=== PATIENT | male | born 1960 | race African-American/Black ===

== ENCOUNTER → 2016-07-18 | Outpatient (CLI) | payer OTHER ==
[~2016-07-18] MED LIST: ADULT LOW DOSE81 MG PO; ALBUTEROL NEB; ALLOPURINOL 10100 M1 PO; AMARYL4 MG GT; AMLODIPINE BESY10 MG PO; ARANESP 4040 MCG/0.4 IJ; AUGMENTIN 875875 MG PO; CARVEDILOL6.25 MG PO; CLONIDINE HCL0.3 M2 PO; COLACE100 MG PO; COREG25 MG PO; DILAUDID 2 MG TA2 MG IV; DORIBAX250 MG IV; DOXYCYCLINE 10100 MG PO; FAMOTIDINE20 MG PO; GLUCOSAMINE HC500 MG PO; GLUCOSAMINE/CHONDROI PO; GUMMY SWIRLS1 EACH PO; GUMMY VITAMINS PO; HEPARIN IV; HEPARIN SQ; HUMALOG100 UNIT/1 SUBQ; HYDRALAZINE 2525 MG PO; HYDRALAZINE 5050 MG PO; HYDRALAZINE IV; HYDROCODONE-AP1 EAC6 PO; IBUPROFEN 800800 M1 GT; IRON325 PO; K-DUR 20 MEQ T20 MEQ PO; LABETALOL IV; LANTUS SOL100 UNIT/1 SUBQ; LANTUS SQ; LANTUS100 UNIT/M SUBQ; LASIX 40 MG TAB40 MG PO; LEVEMIR SUBQ; LEXAPRO 10 MG T10 M1 PO; LEXAPRO20 MG PO; LIDODERM 5%1 PATC1 TRANSDERM; LOPRESSOR IV; LORAZEPAM 1 MG T1 MG IV; METAMUCIL WAFER1 PK1 GT; METOLAZONE 2.52.5 MG PO; METOPROLOL SUCC50 MG PO; MIRALAX17 GM PO; MULTIVITAMINS PO; NEPHROCAPS SOFT1 CAP PO; NORCO 5-325 TA1 EACH PO; NOREPINEPH IV; NORVASC10 MG PO; NOVOLOG100 UNIT/1; PANTOPRAZOLE SO40 M1 PO; PARICALCITOL1 MCG PO; PAXIL10 MG; PRAVASTATIN SOD20 MG PO; PRILOSEC 20 MG20 MG PO; PROTONIX40 M2 GT; REGLAN 5 MG TAB5 M1 GT; RENVELA800 MG PO; SENNA LAXATIVE1 EACH PO; SEROQUEL 25 MG25 MG GT; SEROQUEL 50 MG50 MG GT; SODIUM CHLORID250 ML IV; TAMIFLU30 MG PO; TOPROL XL100 MG PO; TRADJENTA5 MG PO; TRAMADOL 50 MG50 MG PO; TURMERIC PO; TYLENOL325 MG PO; VIT D PO; VITAMIN D2000 UNIT PO; ZANTAC 150MG T150 M1 PO; [UNRECOGNIZED DRUG - OTHER] GT; [UNRECOGNIZED DRUG - OTHER] PO
== END ==
LOC: MRI 07:16
DX: R51 Headache (principal); H91.91 Unspecified hearing loss, right ear

== ENCOUNTER → 2016-08-08 | Outpatient (CLI) | payer OTHER | LOC: RAD 10:35 | DX: J90 Pleural effusion, not elsewhere classified (principal); J98.11 Atelectasis; J98.4 Other disorders of lung; R91.8 Other nonspecific abnormal finding of lung field ==

== ENCOUNTER → 2016-08-22 | Outpatient (CLI) | payer OTHER | LOC: CAT 08:25 | DX: R63.4 Abnormal weight loss (principal); Z85.038 Personal history of other malignant neoplasm of large intestine ==

== ENCOUNTER → 2016-10-19 | Outpatient (CLI) | payer OTHER ==
[2016-10-20 01:11] LABS: GLYCOHEMOGLOBIN (HGB A1C) 6.6 % (4.8-5.6)
== END ==
LOC: MRI 10-11 10:30 → LABMALL 09:04 → MRI 09:04
PROVIDERS: Psychiatry & Neurology Neurology
DX: M48.02 Spinal stenosis, cervical region (principal); C18.9 Malignant neoplasm of colon, unspecified

== ENCOUNTER → 2017-05-01 | Outpatient (CLI) | payer OTHER ==
[~2017-05-01] MED LIST changes: +B COMPLEX1 EACH PO; +LACTULOSE20 GM/30 M PO; +LEVAQUIN 750 M750 MG PO; +MUCINEX600 MG PO; +SENSIPAR 30 MG30 M1 PO; +VENTOLIN HFA 1818 GM INH
== END ==
LOC: CAT 08:59
DX: R22.2 Localized swelling, mass and lump, trunk (principal); J98.4 Other disorders of lung; N18.4 Chronic kidney disease, stage 4 (severe); N18.6 End stage renal disease; J69.0 Pneumonitis due to inhalation of food and vomit; I12.0 Hypertensive chronic kidney disease with stage 5 chronic kidney disease or end stage renal disease; E11.22 Type 2 diabetes mellitus with diabetic chronic kidney disease; E11.42 Type 2 diabetes mellitus with diabetic polyneuropathy; E11.319 Type 2 diabetes mellitus with unspecified diabetic retinopathy without macular edema; G47.33 Obstructive sleep apnea (adult) (pediatric); K21.9 Gastro-esophageal reflux disease without esophagitis; J44.9 Chronic obstructive pulmonary disease, unspecified; E78.5 Hyperlipidemia, unspecified; Z90.49 Acquired absence of other specified parts of digestive tract; Z85.038 Personal history of other malignant neoplasm of large intestine; Z99.2 Dependence on renal dialysis; Z98.890 Other specified postprocedural states

== ENCOUNTER → 2017-10-30 | Outpatient (CLI) | payer OTHER ==
[~2017-10-30] MED LIST changes: -B COMPLEX1 EACH PO; -LACTULOSE20 GM/30 M PO; -LEVAQUIN 750 M750 MG PO; -MUCINEX600 MG PO; -SENSIPAR 30 MG30 M1 PO; -VENTOLIN HFA 1818 GM INH
== END ==
LOC: CAT 08:16
DX: C18.2 Malignant neoplasm of ascending colon (principal); R93.8 Abnormal findings on diagnostic imaging of other specified body structures; N18.4 Chronic kidney disease, stage 4 (severe)

== ENCOUNTER 2018-07-10 08:16 | Inpatient (IN) | payer OTHER ==
[~2018-07-10] VITALS: Ht 193 cm; Wt 141.4 kg
--- NOTE | ~2018-07-10 | HC ---
[facility] [place] [address] CONSULTATION Name: JUNE BERNAL Orly Room #: 449-I ADM IN .R.#: [id number] Admission: 07/10/18 ������������������ Attend Phys: Dominick Brock MD Discharge: ������������������ Date of : 60 Report #: [id number] THIS REPORT FOR: //name// CC: Dominick Brock DATE OF SERVICE: 07/10/2018 NEPHROLOGY CONSULTATION: REASON FOR CONSULTATION: End-stage renal disease requiring hemodialysis. HISTORY OF PRESENT ILLNESS: This is a 57-year-old male who was admitted earlier today from the Emergency Room. He complains of having cough and dyspnea as well as pleuritic chest pain. This all started about 3 weeks ago. He had fevers and probable chills at that time. He said he had myalgias consistent with a viral illness. He was never checked for influenza at that time. Those symptoms started to improve a bit, but over the past week or so, they have now worsened. He has more pleuritic chest pain, central in nature, some right-sided pleuritic chest pain. Cough has worsened to the point that he has these coughing paroxysms which are difficult to control. He reports no sputum production. He had some low-grade fever documented at 101 degrees Fahrenheit recently. Intake of food and fluid has been down. From a dialysis standpoint, the patient has end-stage renal disease due to diabetic nephropathy. He has longstanding diabetes mellitus as the cause of the end-stage renal disease. He dialyzes using a left forearm radiocephalic fistula and normally dialyzes on a Sunday, Sunday, Sunday basis. He has been compliant with his dialysis treatments and last dialyzed 2 days ago on 07/08/2018. He states his intake of food and fluids has been down and his weight gains have not been as big at dialysis. PAST MEDICAL HISTORY: Longstanding diabetes mellitus. With that, he has substantial retinopathy to the point he has blindness, peripheral neuropathy as well as his end-stage renal disease. He also had hypertension with that. He has had several prior episodes of pulmonary infection and pneumonia requiring hospitalization. He also has a history of hepatitis C, treated in 2009 with clearance of the virus. About 5 years ago, he had colon cancer. He had a hemicolectomy done. He got some chemotherapy. It has now been 5 years since that and is noted to be free of disease. He had prior respiratory arrest. He has had a prior left forearm fistula placed noted above. He actually is doing so well from a colon cancer standpoint that his port was removed here just a couple of months ago. MEDICATIONS: At home include Sensipar 30 mg dialysis, pantoprazole 40 mg daily, Lantus 11 units daily, Renvela 800 mg t.i.d. with meals, Nephrocaps 1 daily, [address] [address] CONSULTATION Name: JUNE BERNAL Room #: 449-I [facility] IN .R.#: [id number] Admission: 07/10/18 ������������������ Attend Phys: Dominick Brock MD Discharge: ������������������ Date of : 60 Report #: [id number] albuterol inhaler. ALLERGIES: No known medical allergies. FAMILY HISTORY: Noncontributory. SOCIAL HISTORY: The patient is single, lives in [place], [place]. He is medically disabled. REVIEW OF SYSTEMS: Mainly positive for the cough, fever or pleuritic chest pain as noted above. Appetite has been slightly down. He has some nausea. Some abdominal pain with his cough, which seems to be more muscular in nature. No vomiting. No diarrhea. He has been going to the dialysis. No recent edema. He still makes a small amount of urine. He had fever a few weeks ago and then low grade fever the past few days. He is totally blind. PHYSICAL EXAMINATION: GENERAL: A 57-year-old male, acutely ill with extensive cough, although he does not look overtly toxic at this time. VITAL SIGNS: Blood pressure 144/77, heart rate 94, respiratory rate 24, oxygen saturation 98% on oxygen, temperature 98.6, although was 99.1 earlier today. HEENT: Totally blind. Oral mucosa is negative. NECK: Supple without adenopathy or JVD. CHEST: Shows extensive coughing with a few wheezes and rhonchi, greater on the right than the left, but there are diffuse sounds of that sort. BACK: Shows no CVA tenderness. CARDIOVASCULAR: Heart has somewhat distant heart tones with a regular rate and rhythm. ABDOMEN: Has active bowel sounds, is soft, nontender. There is no peripheral edema. EXTREMITIES: He has left forearm fistula in place with active flow. LABORATORY DATA: Sodium 137, potassium 4.0, chloride 96, bicarbonate 27, BUN 69, creatinine 13.1, glucose 153, calcium 8.0. Troponin less than 0.06. White count 3.6, hemoglobin 11.1, hematocrit 32.9, platelets 173,000. Influenza screen was negative. ASSESSMENT: 1. End-stage renal disease. He missed dialysis today. I have talked to the dialysis nursing staff and we will plan on dialyzing him first thing tomorrow morning. We will try to replicate his usual dialysis run. We will then dialyze him as needed while he is in the hospital. 2. Recurring respiratory infection. White count was normal. He has had fever. He certainly has had cough and is very symptomatic. He is on broad-spectrum antibiotics as well as inhalers and steroids. Hopefully, we will see him respond fairly rapidly. [facility] [address] [place] [address] CONSULTATION Name: JUNE BERNAL Room #: 449-I ADM IN M.R.#: [id number] Admission: 07/10/18 ������������������ Attend Phys: Dominick Brock MD Discharge: ������������������ Date of : 60 Report #: [id number] 3. Longstanding diabetes with retinopathy, neuropathy, and nephropathy. 4. Anemia of end-stage renal disease, on chronic erythropoietin protocol. 5. Colon cancer about 5 years ago post-resection and treatment, now free of disease. PLAN: 1. Continue antibiotics. 2. Dialysis tomorrow. 3. We will follow along the care of this very pleasant patient. ��������������������������������������������� ���������������������������������������� By: ��������������������������������������������� [id number] [id number] Mendoza Jean MD /nt
[2018-07-10 08:16] VITALS: BP 143/80
[~2018-07-10 08:16] MED LIST changes: +B COMPLEX1 EACH PO; +LACTULOSE20 GM/30 M PO; +LEVAQUIN 750 M750 MG PO; +MUCINEX600 MG PO; +SENSIPAR 30 MG30 M1 PO; +VENTOLIN HFA 1818 GM INH
[2018-07-10 09:19] LABS: HEMATOCRIT 32.9 % (42.0-52.0); HEMOGLOBIN 11.1 gm/dL (14.0-18.0); MCH 30.9 pg (26.0-34.0); MCHC 33.9 g/dL (28.0-37.0); MCV 91.2 fL (80.0-100.0); PLATELET COUNT 173 thou/uL (150-400); RBC 3.61 mil/uL (4.50-6.00); RDW 15.4 % (10.5-14.5); WBC 3.6 thou/uL (4.0-11.0)
[2018-07-10 09:31] LABS: ANION GAP 14 mmol/L (7-16); BUN 69 mg/dL (7-18); CHLORIDE 96 mmol/L (98-107); CO2 27 mmol/L (21-32); CREATININE 13.1 mg/dL (0.7-1.3); GLUCOSE 153 mg/dL (74-106); SODIUM 137 mmol/L (136-145)
[2018-07-10 09:39] LABS: TROPONIN-I <0.06 ng/mL (<0.06)
[2018-07-10 09:58] VITALS: BP 143/80
[2018-07-10 10:48] LABS: ABSOLUTE NEUTROPHILS 1.9 thou/uL (1.4-8.2); PLATELET ESTIMATE NORMAL
[2018-07-10 11:40] VITALS: BP 143/80
[2018-07-10 12:45] VITALS: BP 120/77
[2018-07-10 15:00] VITALS: BP 165/93
--- NOTE | 2018-07-10 17:16 | EKG ---
[address] [address] ELECTROCARDIOGRAM REPORT Name: JUNE BERNAL Room #: 449-I ADM IN M.R.#: [id number] ������������������ Admission: 07/10/18 ������������������ Attend Phys: Dominick Brock MD Discharge: ������������������ Date of : 60 Report #: [id number] ����������������������������������������������������������������� [id number] THIS REPORT FOR: //name// [facility] ED Test Date: 2018-07-10 Test Time: 08:34:03 Pat Name: JUNE BERNAL Department: Room: [facility] Gender: M Product Responsibility Liaison: SUZI : 1960 Requested By: Jim Mcdonnell Order Number: [id number] MD: Papo Springer Measurements Intervals [place] Rate: 91 P: 36 LA: 169 QRS: 9 QRSD: 85 T: 35 QT: 368 QTc: 453 Interpretive Statements Sinus rhythm Normal tracing Compared to ECG 11/16/2017 07:38:26 Sinus tachycardia no longer present Electronically Signed On 07-10-2018 17:16:19 CDT by Papo Springer [email or web address] ��������������������������������������������� <ELECTRONICALLY SIGNED> ���������������������������������������� By: Papo Springer MD, [facility] ��������������������������������������������� 07/10/18 1716 D: [id number] Papo Springer MD, FACC /EPI
--- NOTE | 2018-07-10 18:44 | NUR ---
Received pt from the ER, pt is blind on both eyes and would need guidance when moving around the room. Pt is able to sign consents and other documents in the precence of his mother. Dialysis days are MWF, consult called to renal consult, answering service got the call. called back but has not come to see the pt, no orders for dialysis given. Sent messgae to Dr. Brock for next step. Will follow up the consult for tomorrow and to have dialysis then. Pt is able to move from the bed to the commode with assistance. Diet is well tolerated, but had some nause medication given. POC followed kept comfortable
[2018-07-10 19:24] VITALS: BP 144/77
--- NOTE | 2018-07-11 01:45 | NUR ---
Assumed care at 1845. Pt complained about generalized pain. Got an order for one time morphine. Pt has been feeling nausea when receiving breathing treatments. No identified needs at the moment. Call light within reach. Will continue to monitor.
[2018-07-11 04:00] VITALS: BP 148/86
[2018-07-11 06:55] LABS: ABSOLUTE NEUTROPHILS 2.7 thou/uL (1.4-8.2); BASOPHILS 0.2 % (0.0-2.0); HEMATOCRIT 35.2 % (42.0-52.0); HEMOGLOBIN 11.6 gm/dL (14.0-18.0); LYMPHOCYTES 12.3 % (24.0-44.0); MCH 30.2 pg (26.0-34.0); MCV 91.4 fL (80.0-100.0); MONOCYTES 4.4 % (1.0-8.0); PLATELET COUNT 168 thou/uL (150-400); POLYS 83.1 % (36.0-66.0); RBC 3.85 mil/uL (4.50-6.00); WBC 3.2 thou/uL (4.0-11.0)
[2018-07-11 07:12] LABS: ALBUMIN 3.3 g/dL (3.4-5.0); CALCIUM 7.8 mg/dL (8.5-10.1); MAGNESIUM 1.9 mg/dL (1.8-2.4); PHOSPHORUS 6.3 mg/dL (2.5-4.9)
[2018-07-11 07:13] LABS: CREATININE 14.8 mg/dL (0.7-1.3)
[2018-07-11 07:16] LABS: POTASSIUM 5.3 mmol/L (3.5-5.1)
[2018-07-11 07:20] VITALS: BP 146/87
[2018-07-11 13:07] VITALS: BP 145/87
--- NOTE | 2018-07-11 15:30 | NUR ---
PT A&OX4, VSS, PT REPORTS BACK PAIN AT AN 8 AND RECEIVING FENTANYL. PT RECEIVING DIALYSIS TODAY, WILL CONTINUE TO MONITOR.
[2018-07-11 15:39] VITALS: BP 133/78
[2018-07-11 19:09] VITALS: BP 134/76
--- NOTE | 2018-07-12 02:55 | NUR ---
SLEEPING WITHOUT COMPLAINTS AT PRESENT TIME WITH CPAP AND CONTINOUS O2 SAT ON WITH SATS 98%. MAINTAIN SAFE ENVIRONMENT. ICE CHIPS GIVEN PRN PER PATIENT REQUEST STATING DOESNT LIKE TO DRINK WATER DUE TO DIALYSIS. INFORMED DIALYSIS SCHEDULED FOR AM. WORKING ON GOALS AND PLAN OF CARE FOR NOC. PROGRESSING SLOWLY TOWARDS DISCHARGE GOALS. STATES IS BREATHING BETTER BUT WORN OUT FROM TODAY. CONTINUE TO ASSES.
[2018-07-12 04:21] VITALS: BP 152/87
[2018-07-12 07:36] VITALS: BP 137/84
--- NOTE | 2018-07-12 13:04 | NUR ---
PT A&OX3, VSS, NO DISTRESS, AND PAIN BEING MANAGED WITH FENTANYL. PT HAS HAD CTA DONE AND DIALYSIS WILL BE IN TODAY. PT HAS BEEN UP IN CHAIR AND TOLERATING DIET. PT CONCERN IS SOA, CRACKLES HEARD IN UPPER AND LOWER LOBES, WITH NON PRODUCTIVE COUGH. PT IS RECEIVING BREATHING TREATMENTS AND ANTIBIOTICS. O2 SATS WNL, NON LABORED BREATHING. WILL CONTINUE TO MONITOR.
[2018-07-12 14:51] VITALS: BP 138/78
--- NOTE | 2018-07-12 15:37 | NUR ---
DISCHARGE PLANNING. ANTICIPATED DISCHARGE TOMORROW. CALL PLACED TO JEANNETTE THORNTON FOR [facility], TO NOTIFY OF PATIENTS DISCHARGE AND RESUMPTION OF OUTPATIENT DIALYSIS. THUAN TO NOTIFY DIALYSIS TEAM. SHOULD PATIENT DISCHARGE TOMORROW. PLEASE FAX DISCHARGE ORDERS, DISCHARGE SUMMARY, AND DIALYSIS FLOW SHEETS TO JEANNETTE JANSEN FOR [facility]. [facility] CONTACT NUMBER IS [phone] FAX [phone]
--- NOTE | 2018-07-12 15:44 | NUR ---
INITIAL ASSESSMENT: SW reviewed chart and spoke with nursing and attending physician. Pt was admitted from home due to ESRD/pneumonia. Pt is progressing towards goals for discharge. Discharge home is anticipated for tomorrow. SW attempted to meet with pt. Pt requests SW return at a later time. Pt goes to dialysis MWF at [facility]. Pt's family provides transportation to/from dialysis. Pt lives at home with family. Prior to admission, pt was independent with ADLs. Pt has cane/walker/wc/bipap at home. Bipap is provided by [employer]. Pt has used [facility] in the past for HH. Pt's PCP is Dr. Dominick Walters. convention planner to send clinical info to [facility] and notify of anticipated weekend discharge. Final discharge orders/summary and dialysis flow sheets will need to be faxed to [facility] when available. SW is available to assist should needs arise.
--- NOTE | 2018-07-12 17:05 | NUR ---
Met with at bedside with development representative from [facility]. Clarified 's intention for discharge plan as it has changed often. is now requesting attempt for skilled authorization. Anabell with [facility] submitted for authorization and anticipate an answer on Sunday. then stated "we had him there before and they denied us then". Asked if authorization could not be obtained what would be her next plan. stated clearly with development representative in the room to say "then I will take him home". Notified attending hospitalist, RN and Business Process Specialist of above.
[2018-07-12 20:37] VITALS: BP 137/83
[2018-07-13] VITALS: BP 169/95
--- NOTE | 2018-07-13 03:06 | NUR ---
PATIENT IS ALERT AND ORIENTED. PATIENT HAS FISTULA TO LT ARM (+) THRILL AND BRUIT. PATIENT HAD 2L REMOVED PER DIALYSIS. PATIENT IS ON ROOM DURING DAY AND CPAP HS. PATIENT HAS CHRONIC BACK PAIN MEDICAITION TAKEN. PATIENT IS LEGALLY BLIND. PATIENT IS OLIURIC. LBM WAS THE 22ND. PATIENT IS RESTING COMFORTABLY IN BED.WCM. PATIENT IS PROGRESSING TO GOALS.
[2018-07-13 03:57] VITALS: BP 160/99
[2018-07-13] MEDS ORDERED: MUCINEX600 MG PO (08:50)
[2018-07-13] MEDS ORDERED: LEVAQUIN 500 M500 M2 PO (08:51)
[2018-07-13 08:56] VITALS: BP 140/68
[2018-07-13 12:02] VITALS: BP 140/68
[2018-07-13 12:06] VITALS: BP 140/68
--- NOTE | 2018-07-13 14:52 | NUR ---
VSS-AFEBRILE. LUNGS CLEAR-ROOM AIR. DISCUSSED DISCHARGE INSTRUCTIONS, VERBALIZED UNDERSTANDING. REMOVED POC ACCESS NEEDLE, APPLIED BANDAID. LEFT UNIT IN WHEELCHAIR WITH NURSING STAFF AND ALL PERSONAL BELONGINGS.
== END 2018-07-13 13:32 | disposition home or self-care (01) | DRG 871 ==
LOC: ER 08:16 → 4W 10:31 → EROBS 10:31 → 4W 11:50
PROVIDERS: Emergency Medicine; Nurse Practitioner; ADMIT Hospitalist
DX: A41.9 Sepsis, unspecified organism (principal); N18.6 End stage renal disease; J18.1 Lobar pneumonia, unspecified organism; I12.0 Hypertensive chronic kidney disease with stage 5 chronic kidney disease or end stage renal disease; H54.8 Legal blindness, as defined in USA; E11.65 Type 2 diabetes mellitus with hyperglycemia; D63.1 Anemia in chronic kidney disease; E78.5 Hyperlipidemia, unspecified; E11.22 Type 2 diabetes mellitus with diabetic chronic kidney disease; G47.30 Sleep apnea, unspecified; E11.319 Type 2 diabetes mellitus with unspecified diabetic retinopathy without macular edema; Z90.49 Acquired absence of other specified parts of digestive tract; Z86.19 Personal history of other infectious and parasitic diseases; Z79.51 Long term (current) use of inhaled steroids; Z85.038 Personal history of other malignant neoplasm of large intestine; Z91.040 Latex allergy status
CPT/HCPCS: 10040; 32100

== ENCOUNTER 2019-05-28 10:40 | Inpatient (IN) | payer OTHER ==
[~2019-05-28] VITALS: Ht 193 cm; Wt 127.1 kg
--- NOTE | ~2019-05-28 | EKG ---
[facility] [place] [address] ELECTROCARDIOGRAM REPORT Name: JUNE BERNAL Room #: [facility].#: [id number] Admission: Attend Phys: Discharge: Date of : 60 Report #: [id number] THIS REPORT FOR: cc: Dominick Walters MD, Kirk D. MD Epiphany, Epiphany MD ~ THIS REPORT FOR: //name// [facility] ED Test Date: 2019-05-28 Test Time: 10:49:33 Pat Name: JUNE BERNAL Department: Room: Gender: M Stem [facility] 1960 Requested By: Jim Mcdonnell Order Number: [id number] MD: Measurements Intervals [place] Rate: 79 P: 31 UT: 182 QRS: 10 QRSD: 84 T: 46 QT: 383 QTc: 440 Interpretive Statements Ventricular-paced complexes No further rhythm analysis attempted due to paced rhythm Consider left atrial enlargement Compared to ECG 07/10/2018 08:34:03 Sinus rhythm no longer present [email or web address] By: 1049 1049 Epiphany MD Uriel /EPI
--- NOTE | ~2019-05-28 | HC ---
[facility] [place] [address] CONSULTATION Name: JUNE BERNAL Room #: 205-P [facility] IN M.R.#: [id number] Admission: 05/28/19 Attend Phys: Yvan Waite MD Discharge: Date of : 60 Report #: [id number] THIS REPORT FOR: cc: Dominick Walters MD, Kirk D. MD Al-Absi, Ahmed I. MD ~ THIS REPORT FOR: //name// CC: Yvan Ngo REASON FOR CONSULTATION: Dialysis patient. REASON FOR PRESENTATION: Weakness. HISTORY OF PRESENT ILLNESS: This is a very well-known patient to me. He is in end-stage renal disease with many comorbid conditions including diabetes mellitus, legal blindness. He is known to have obstructive sleep apnea. He has a history of colon cancer, status post hemicolectomy. He presented with nonspecific symptoms including headache, tingling on the right side of his body, shooting pain. He was admitted to be further evaluated. MRI scan was completely unremarkable. The patient missed dialysis on Sunday. He dialyzed on Sunday. He missed dialysis on Sunday. Because of the ongoing issues with him missing dialysis, I was consulted to manage his end-stage renal disease. PAST MEDICAL HISTORY: 1. End-stage renal disease, maintained on hemodialysis. 2. Obstructive sleep apnea. 3. Hypertension. 4. Hepatitis C. 5. Colon cancer. 6. Legal blindness. MEDICATIONS: 1. Sevelamer. 2. Lantus. 3. Folic acid. 4. Pantoprazole. ALLERGIES: LATEX. REVIEW OF SYSTEMS: GENERAL: No fever or chills. CARDIOVASCULAR: No chest pain or palpitations. PULMONARY: No cough or hemoptysis. GASTROINTESTINAL: No nausea or vomiting. [facility] [address] [place] [address] CONSULTATION Name: JUNE BERNAL Orly Room #: 205-P [facility] IN M.R.#: [id number] Admission: 05/28/19 Attend Phys: Yvan Waite MD Discharge: Date of : 60 Report #: [id number] BREASTS: No rash or ulcerations. NEUROLOGICAL: As per the history of present illness. PHYSICAL EXAMINATION: VITAL SIGNS: Temperature 36.7, blood pressure 118/66. HEAD AND NECK: No jugular venous distention. CHEST: No crackles. CARDIOVASCULAR: Regular with no rub detected. ABDOMEN: Soft, nontender with no hepatosplenomegaly. EXTREMITIES: Lower extremities, no edema. LABORATORY DATA: Reviewed. Hemoglobin is 9.8. Sodium is 140, potassium is 4.6, BUN is 53, and creatinine is 10.8. ASSESSMENT, IMPRESSION AND PLAN: 1. End-stage renal disease. 2. Nonspecific neurological presentation with headache and numbness. No evidence of an acute stroke or transient ischemic attack. 3. Continue with hemodialysis every Sunday, Sunday, and Sunday, however, because the patient missed his dialysis yesterday, I will arrange for him to have dialysis today and tomorrow. By: 0755 Thai Nguyen MD /nt
--- NOTE | ~2019-05-28 | HC ---
[facility] [place] [address] CONSULTATION Name: JUNE BERNAL Room #: 205-P [facility] IN M.R.#: [id number] Admission: 05/28/19 Attend Phys: Yvan Waite MD Discharge: Date of : 60 Report #: [id number] THIS REPORT FOR: cc: Dominick Walters MD, Kirk D. MD Khosla,Los Moore MD ~ THIS REPORT FOR: //name// CC: Yvan Ngo DATE OF SERVICE: 05/28/2019 HISTORY OF PRESENT ILLNESS: This 58-year-old male patient was seen in the Emergency Room for what he described as severe headache and numbness on the right side. It is not even sure which side was the numbness. He was mainly complaining of headache. He is a dialysis patient. He gets headache sometime in association with dialysis, sometime without it. He was within the window, so we did an extensive workup in this patient, which included MRI and MRA that does not appear to be showing any problem. REVIEW OF SYSTEMS: Positive for renal failure, diabetes, hypertension, sleep apnea, diabetic neuropathy, hepatitis C, medication related respiratory arrest, blood in stool, colonoscopy with extensive workup. That was his relevant 14-point review of system. PAST MEDICAL HISTORY: Positive for end-stage renal disease. FAMILY HISTORY: Negative for early age stroke. SOCIAL HISTORY: He does not smoke. PHYSICAL EXAMINATION: Indicate he was alert and responsive. His speech was at his baseline. Cranial nerve examinations indicate blindness. Neuromuscular examination was positive for weakness, but I am not sure it was real or giveaway weakness. Cardiac and respiratory examination was unremarkable. Blood pressure is 137/74, respirations 12, pulse is 79. LABORATORY DATA: Indicate WBC count of 4.4. His GFR is 7. MRI/MRA were reviewed and does not appear to be showing any abnormalities, which can explain the patient's symptoms. IMPRESSION: I am not sure what the etiology of the patient's headache is. It is probably related to the dialysis. He had a sed rate one time, it was 45. We will repeat it. I will get an MRV done tomorrow just to make sure there is no [facility] [address] [place] [address] CONSULTATION Name: JUNE BERNAL Room #: 205-P ADM IN M.R.#: [id number] Admission: 05/28/19 Attend Phys: Yvan Waite MD Discharge: Date of : 60 Report #: [id number] etiology there and I am not sure what else we can do except for managing his vascular risk factors. He is already given an aspirin, which I will suggest continuing and if his lipid profile is abnormal, then we can start him on statin. We will also get an echocardiogram to make sure there is no predisposition for TIA. Thank you very much for this referral. More than 50 minutes of time was spent taking care of this patient today and majority of time was spent counseling and coordinating. By: Alexandrea: 05/28/19 2133 0040 Los Ngo MD /nt
[~2019-05-28 10:40] MED LIST changes: +LEVAQUIN 500 M500 M2 PO
[2019-05-28 10:43] VITALS: BP 146/74
[2019-05-28 11:37] LABS: HEMATOCRIT 31.4 % (42.0-52.0); HEMOGLOBIN 10.3 gm/dL (14.0-18.0); MCH 30.7 pg (26.0-34.0); MCHC 32.7 g/dL (28.0-37.0); MCV 93.8 fL (80.0-100.0); PLATELET COUNT 222 thou/uL (150-400); RBC 3.35 mil/uL (4.50-6.00); RDW 15.7 % (10.5-14.5); WBC 4.4 thou/uL (4.0-11.0)
[2019-05-28 11:39] LABS: ANION GAP 9 mmol/L (7-16); BUN 45 mg/dL (7-18); CALCIUM 8.6 mg/dL (8.5-10.1); CHLORIDE 99 mmol/L (98-107); CO2 30 mmol/L (21-32); CREATININE 9.3 mg/dL (0.7-1.3); GLUCOSE 127 mg/dL (74-106); POTASSIUM 4.4 mmol/L (3.5-5.1); SODIUM 138 mmol/L (136-145)
[2019-05-28 11:49] LABS: ALBUMIN 3.7 g/dL (3.4-5.0); SGOT < 5 U/L (15-37); SGPT 15 U/L (30-65); TOTAL BILIRUBIN 0.3 mg/dL (<0.1-1.0); TOTAL PROTEIN 7.9 g/dL (6.4-8.2); TROPONIN-I <0.06 ng/mL (<0.06)
[2019-05-28 11:56] LABS: ABSOLUTE NEUTROPHILS 2.6 thou/uL (1.4-8.2)
[2019-05-28 11:57] LABS: PLATELET ESTIMATE NORMAL
[2019-05-28 12:53] LABS: APTT 30.6 Seconds (24.5-32.8); INR 1.1; PROTIME 10.9 Seconds (9.3-11.4)
[2019-05-28] MEDS ORDERED: RENAL-VITE TAB0.8 MG PO (13:10)
[2019-05-28 14:31] VITALS: BP 135/76
[2019-05-28 17:38] VITALS: BP 137/74
--- NOTE | 2019-05-28 19:23 | NUR ---
PATIENT ARRIVED FROM ED VIA STRECHER, ALERT AND ORIENTED X4. ADMISION COMPLETED AND POC INTIATED.
[2019-05-28 20:05] VITALS: BP 134/70
[2019-05-28 23:45] VITALS: BP 120/66
--- NOTE | 2019-05-29 05:21 | NUR ---
ASSUMED PT CARE AT 1900. PT IS ALERT AND ORIENTED, LEGALLY BLIND. NO SIGN OF DISTRESS NOTED IN PT. FALL PRECAUTION IN PLACE. VITAL SIGN STABLE. COMPLAINS OF A HEADACHE. ASSESSMENT COMPLETED AND DOCUMETED. SCHEDULED MEDS ADMINISTERED TO PT. CPAP PLACED ON PT. DENIES ANY FURTHER NEEDS AT THIS TIME
[2019-05-29 06:08] VITALS: BP 118/66
[2019-05-29 06:34] LABS: HEMATOCRIT 29.2 % (42.0-52.0); HEMOGLOBIN 9.8 gm/dL (14.0-18.0); MCH 31.3 pg (26.0-34.0); MCHC 33.7 g/dL (28.0-37.0); RBC 3.14 mil/uL (4.50-6.00); RDW 15.9 % (10.5-14.5); WBC 3.6 thou/uL (4.0-11.0)
[2019-05-29 06:53] LABS: CALCIUM 8.2 mg/dL (8.5-10.1); POTASSIUM 4.6 mmol/L (3.5-5.1)
[2019-05-29 06:59] LABS: CREATININE 10.8 mg/dL (0.7-1.3)
[2019-05-29 07:23] LABS: TSH 1.178 uIU/mL (0.358-3.740)
[2019-05-29 08:00] VITALS: BP 107/67
--- NOTE | 2019-05-29 11:05 | NUR ---
Nutrition: pt not presently on renal diet restriction, only carb controlled. PO intake poor at present. If pt begins eating > 50% of meals, REC add renal restriction to current diet order.
[2019-05-29 11:30] VITALS: BP 127/61
[2019-05-29 16:30] VITALS: BP 150/79
--- NOTE | 2019-05-29 16:32 | NUR ---
ASSUMED CARE AT SHIFT CHANGE, ALERT AND ORIENTED. VSS AND AFEBRILE. DIALIZING, AND C/O HEADACHE MEDICATED NEEDED. AND WILL CONTINUE WITH POC.
[2019-05-29 19:55] VITALS: BP 139/63
[2019-05-30 04:10] VITALS: BP 108/60
--- NOTE | 2019-05-30 04:36 | NUR ---
ASSUMED PT CARE AT 1900. PT IS ALERT AND ORIENTED. NO SIGN OF DISTRESS NOTED IN PT. PT IS STABLE. FALL PRECAUTION IN PLACE. ASSESSMENT COMPLETED AND DOCUMETED. VITAL SIGNS STABLE. DENIES ANY PAIN. SCHEDULED MEDS ADMINISTERED TO PT. TOLERATED PO INTAKE. DIAYLSIS IN THE AM. DENIES ANY FURTHER NEEDS AT THIS TIME.
[2019-05-30 07:44] VITALS: BP 122/64
--- NOTE | 2019-05-30 11:36 | NUR ---
PT COMPLAINED OF HEAD ACHE AND GENERAL BODY ACHE, DR. FELDMAN SUGGESTED GIVING THE TRAMADOL, PT SAID HIS PAIN CAME DOWN FROM A 6/10 TO A 5/10 WITH IT. PT STILL HAS HEAD ACHE, BUTALBITAL GIVEN TO HELP. WILL MONITOR. SPOKE WITH PT'S MOM TO GIVE UPDATE ON PT. SHE VERBALIZED UNDERSTANDING.
[2019-05-30 11:45] VITALS: BP 128/63
[2019-05-30 18:10] VITALS: BP 129/60
[2019-05-30 19:58] VITALS: BP 106/67
--- NOTE | 2019-05-30 20:23 | NUR ---
Received patient from CCU at 1805, transferred to bed safely. On room air. A+Ox4, legally blind- assisted in ADLs. On carb controlled diet- tolerating well; no nausea, no vomiting and no abdominal pain. Pt uses CPAP at night- fitter mechanic nurse informed to contact RT re: CPAP machine. Pt oriented to where his things are. No complaints of pain made. Falls bundle in place. With dialysis access at L forearm- dressing C/D/I, dialysis schedule ; pt had dialysis this afternoon. Able to ambulate, on standby assist. With R chest port- accessed, able to draw blood as per previous nurse. To continue monitor patient.
--- NOTE | 2019-05-31 05:20 | NUR ---
PROGRESS PT A/O X4 REPORTS GENERALIZED PAIN TAKING TRAMADOL SPARINGLY WITH SOME EFFECT PT SLEEPS AFTER. RIGHT CHEST PORT WITH GOOD BLOOD RETURN AND FLUSHES WITHOUT DIFFICULTY. LEFT FOREARM SHUNT HAS GOOD BRUIT AND TRILL DRESSING C/D/I. PT IS BLIND BUT USING CALL LIGHT EFFECTIVELY. UP WITH SBA. PT STATES HIS HEADACHE COMES AND GOES BUT IT IS NOT A SEVERE IT WAS YESTERDAY. ACCUCHECKS AND SSI CONTINUE PT TOLERATING DIET. ANURIC TOOK IN 360 CC'S LAST NIGHT PREFERS ICE CHIPS TO WATER OR SMALL AMOUNTS OF JUICE. HAD A BM 2/6. CONTINUE TO MONITOR.
[2019-05-31 07:36] VITALS: BP 99/61
--- NOTE | 2019-05-31 11:05 | NUR ---
Received awake on bed. Due medications given as prescribed, able to swallow meds w/o difficulty. On room air. Vital signs stable. A+Ox4, legally blind- assisted in ADLs. On blood sugar monitoring- taken and recorded accordingly, with sliding scale prescribed. On carb controlled diet- tolerating well; no nausea, no vomiting and no abdominal pain noted. With R chest port in place- flushing well; drawing blood well. On room air during day time, Bipap at night- available at bedside. Falls bundle in place. With Dialysis access at L upper arm, dressing in place, bruit and thrill present; dialysis schedule . To continue monitoring patient.
[2019-05-31 14:59] VITALS: BP 102/51
[2019-05-31 19:41] VITALS: BP 122/58
[2019-06-01 07:52] VITALS: BP 111/64
--- NOTE | 2019-06-01 08:30 | NUR ---
progress pt denied pain reported that he has not slept well since he's been here asked to be left alone to sleep. hourly rounds done pt slept all night without being disturbed continue to monitor.
[2019-06-01] MEDS ORDERED: BUTALB-APAP-CA1 EACH PO (13:49)
[2019-06-01 14:03] VITALS: BP 111/64
--- NOTE | 2019-06-01 15:03 | NUR ---
A/O, calm and cooperative; afebrile. C/o headache, pain medication given and worked. Dc and left with a wheel chair at 1500.
--- NOTE | 2019-06-01 19:19 | NUR ---
Patient's pharmacy :[phone]. Dr did not sign on the prescription on the discharge. nurse will clarifiy with the pharmacy in case being called. it has been passed on to the night nurse.
== END 2019-06-01 15:13 | disposition home or self-care (01) | DRG 102 ==
LOC: ER 10:40 → 2N 14:31 → EROBS 14:31 → 2N 17:46 → ENTRNSPT 05-30 17:35 → 4W 05-30 17:51
PROVIDERS: Emergency Medicine; Psychiatry & Neurology Neuromuscular Medicine; ADMIT Hospitalist
PROC: 5A09357 Assistance with Respiratory Ventilation, Less than 24 Consecutive Hours, Continuous Positive Airway Pressure (ICD-10-PCS; principal; 2019-05-28)
PROC: 5A1D70Z Performance of Urinary Filtration, Intermittent, Less than 6 Hours Per Day (ICD-10-PCS; 2019-05-29)
PROC: 5A09357 Assistance with Respiratory Ventilation, Less than 24 Consecutive Hours, Continuous Positive Airway Pressure (ICD-10-PCS; 2019-05-29)
PROC: 5A09357 Assistance with Respiratory Ventilation, Less than 24 Consecutive Hours, Continuous Positive Airway Pressure (ICD-10-PCS; 2019-05-30)
PROC: 5A09457 Assistance with Respiratory Ventilation, 24-96 Consecutive Hours, Continuous Positive Airway Pressure (ICD-10-PCS; 2019-05-31)
DX: G43.909 Migraine, unspecified, not intractable, without status migrainosus (principal); N18.6 End stage renal disease; I12.0 Hypertensive chronic kidney disease with stage 5 chronic kidney disease or end stage renal disease; C18.9 Malignant neoplasm of colon, unspecified; G44.89 Other headache syndrome; R53.1 Weakness; H54.7 Unspecified visual loss; E11.319 Type 2 diabetes mellitus with unspecified diabetic retinopathy without macular edema; E66.9 Obesity, unspecified; E11.21 Type 2 diabetes mellitus with diabetic nephropathy; G47.33 Obstructive sleep apnea (adult) (pediatric); E11.40 Type 2 diabetes mellitus with diabetic neuropathy, unspecified; K21.9 Gastro-esophageal reflux disease without esophagitis; E11.22 Type 2 diabetes mellitus with diabetic chronic kidney disease; Z90.49 Acquired absence of other specified parts of digestive tract; Z86.19 Personal history of other infectious and parasitic diseases; Z79.899 Other long term (current) drug therapy; Z91.040 Latex allergy status; Z99.2 Dependence on renal dialysis; Z68.34 Body mass index [BMI] 34.0-34.9, adult
CPT/HCPCS: 10047; 10081; 32100

== ENCOUNTER → 2019-07-29 | Outpatient (CLI) | payer OTHER ==
[~2019-07-29] MED LIST changes: +BUTALB-APAP-CA1 EACH PO; +RENAL-VITE TAB0.8 MG PO
== END ==
LOC: CAT 10:44
DX: R91.8 Other nonspecific abnormal finding of lung field (principal); C18.2 Malignant neoplasm of ascending colon

== ENCOUNTER → 2019-08-26 | Outpatient (CLI) | payer OTHER ==
--- NOTE | 2019-08-26 12:46 | NUR ---
PT TO IR RM #4 TO HAVE PORT REMOVED FROM RT CHEST. DR Marquis DUMAS TO ROOM, TIME OUT DONE. PT GIVEN 100 MCG FENTANYL AND 1 MG VERSED FOR PROCEDURE. NS RUNNING, O2 AT 2L NC. PORT WAS REMOVED WITHOUT COMPLICATIONS, PT RETURNED TO CV HOLDING ROOM. IS DROWSY, IMMEDIATELY ANSWERS TO VOICE, EYES CLOSED. DRESSING RT CHEST C/D/I. FAMILY AT BEDSIDE. PT TO DC AFTER MORE ALERT.
== END | disposition home or self-care (01) ==
LOC: CATH 09:12
DX: Z45.2 Encounter for adjustment and management of vascular access device (principal); I12.0 Hypertensive chronic kidney disease with stage 5 chronic kidney disease or end stage renal disease; E11.22 Type 2 diabetes mellitus with diabetic chronic kidney disease; E11.40 Type 2 diabetes mellitus with diabetic neuropathy, unspecified; N18.6 End stage renal disease; K21.9 Gastro-esophageal reflux disease without esophagitis; Z99.2 Dependence on renal dialysis; Z98.890 Other specified postprocedural states; Z79.899 Other long term (current) drug therapy; Z79.4 Long term (current) use of insulin; Z91.040 Latex allergy status